=== PATIENT | male | born 1960 | race Hispanic/Latino ===

== ENCOUNTER 2016-07-24 15:59 | Emergency (ER) | payer OTHER ==
[~2016-07-24] VITALS: Ht 177.8 cm; Wt 81.6 kg
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
[2016-07-24 16:11] VITALS: BP 143/92
[2016-07-24] MEDS ORDERED: OXYCODONE HCL10 M2 PO (17:36)
[2016-07-24] MEDS ORDERED: CYCLOBENZAPRINE5 M2 PO (17:36)
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
== END 2016-07-24 18:03 ==
LOC: ERH 15:59
DX: S01.01XA Laceration without foreign body of scalp, initial encounter (principal); S16.1XXA Strain of muscle, fascia and tendon at neck level, initial encounter; V89.2XXA Person injured in unspecified motor-vehicle accident, traffic, initial encounter; Y92.410 Unspecified street and highway as the place of occurrence of the external cause